=== PATIENT | male | born 1960 | race Caucasian/White ===

== ENCOUNTER 2023-01-17 08:38 | Day surgery (SDC) | payer MEDICARE, SELFPAY ==
--- NOTE | 2023-01-12 12:07 | EKG12_ITS ---
Test Reason : PRE OP Blood Pressure : / mmHG Vent. Rate : 050 BPM Atrial Rate : 050 BPM P-R Int : 142 ms QRS Dur : 088 ms QT Int : 440 ms P-R-T Axes : 063 -27 041 degrees QTc Int : 401 ms Sinus bradycardia with Premature atrial complexes Otherwise normal ECG Confirmed by ALICIA WYNNE, KASIE ([id number]), image editor REX SOTELO ([id number]) on 01/15/2023 11:11:55 AM Referred By: Nghia Donovan Confirmed By:KASIE VARGAS MD
[2023-01-12 13:32] LABS: Hematocrit 48.2 % (40-54); Hemoglobin 15.9 g/dL (13.0-16.5); Mean Corpuscular Hgb 33.2 pg (27.0-32.0); Mean Corpuscular Volume 100.6 fL (80-94); Mean Platelet Vol. 10.9 fl (6.2-12.0); Platelet Count 124 K/mm3 (150-450); RBC Distribution Width CV 12.5 % (11.6-14.6); Red Blood Count 4.79 M/mm3 (4.6-6.2); White Blood Count 7.4 K/mm3 (4.4-11.0)
[2023-01-12 13:45] LABS: International Normalized Ratio 1.1
[2023-01-12 13:59] LABS: AST(SGOT) 34 U/L (15-37); Alanine Aminotransfer ALT/SGPT 31 U/L (16-61); Albumin, Serum 4.3 g/dL (3.2-5.0); Alkaline Phosphatase 74 U/L (45-117); Bilirubin, Direct 0.19 mg/dL (0.00-0.30); Globulin 3.2 g/dL (2.2-4.2); Protein, Total 7.5 g/dL (6.4-8.2)
[2023-01-12 14:07] LABS: Anion Gap 7 (5-15); BUN 21 mg/dL (7-18); BUN/Creat Ratio 23.6 RATIO (10-20); Calcium,Total 9.4 mg/dL (8.5-10.1); Chloride 102 mmol/L (98-107); Creatinine, Serum 0.89 mg/dL (0.70-1.30); EST Glomerular Filtration Rate 92 mL/min (>60); Est Glom Filt Rate - Afr Amer 111 mL/min (>60); Glucose 84 mg/dL (74-106); Sodium Level 139 mmol/L (136-145)
[2023-01-17 09:09] VITALS: BP 124/68; PULSE 58; RESP 12; TEMP 37; O2SAT 100; BMI 26.6
[2023-01-17] MEDS: Lactated Ringers 1,000 ML 15 ML IV ×3 (09:20→12:55)
--- NOTE | 2023-01-17 10:37 | HP.PCM_ITS ---
History and Physical Date of Admission: 01/17/23 Visit Reasons:?INGUINAL PAIN Chief Complaint: inguinal pain Is patient in pain?: Yes Allergies No Known Allergies Allergy (Verified 12/13/22 11:07) Medications amlodipine 5 mg tablet 5 mg PO DAILY 12/13/22 [History Confirmed 12/13/22] atorvastatin 10 mg tablet 10 mg PO DAILY 12/13/22 [History Confirmed 12/13/22] gabapentin 300 mg capsule 300 mg PO DAILY 12/13/22 [History Confirmed 12/13/22] magnesium hydroxide 400 mg (170 mg magnesium) chewable tablet 800 mg PO BID 12/13/22 [History Confirmed 12/13/22] multivitamin 1 tab PO DAILY 12/13/22 [History Confirmed 12/13/22] ondansetron 4 mg disintegrating tablet 4 mg PO Q8H PRN 12/13/22 [History Confirmed 12/13/22] PFSH Medical History?(Updated 12/13/22 @ 11:04 by Linette Collins) Atrial fibrillation Social History?(Updated 12/13/22 @ 11:05 by Linette Collins) Smoking Status:? Never smoker alcohol intake:? never substance use type:? does not use additional social history:? takes ibuprofen HPI HPI HPI: 62-year-old gentleman is being referred by Dr. Allan Barboza for surgical consultation regarding left inguinal pain and a written copy my surgical consult recommendations will return to him.? Based upon CT scan imaging the patient has a known left inguinal fat-containing hernia.? Complicating medical factors include hepatitis C and hypertension and obstructive sleep apnea and paroxysmal atrial fibrillation with history of pulmonary emboli and thrombocytopenia.? It is of note that the patient is status post an extensive illness and hospitalization 2016 aggressively has lost weight intentionally to where he has had a 70 pound weight loss.? He has a significant overlying abdominal pannus.? He was already seen a year ago for this problem by general surgeon and is now requesting a second opinion. The patient's had a previous history of hepatitis C.? He did undergo medical treatment states that his viral load is 0.? Claims we had his illness in 2016 as when he had congestive heart failure and he was hospitalized and had to go through rehab but all of that resolved.? He does have a peripheral atrial fibrillation has a loop recorder in place now and is on chronic warfarin therapy. He notes that he will have pain shooting across the low abdomen.? He was seen in [place] a week ago with severe lower abdominal pain.? He states he had a CT scan done there and was instructed by the ER doctor that it was normal.? There is no etiology of the patient's severe abdominal pain and he was simply told to follow-up with primary care. The patient states that he feels a bulge or mass in the left groin area.? Occasionally he will feel it moving bubble and tinkle He states a year ago he had rectal bleeding and had a colonoscopy.? States there is no other acute pathology at that time. Currently no bright red blood per rectum or melena.? He always has looser stools.? No constipation. ROS General General: Yes weight change; No appetite, fatigue, colon cancer, breast cancer or weakness HEENT HEENT: No difficulty swallowing, eye injury, eye surgery, swollen glands or hoarseness Endo Endocrine: No thyroid disease, diabetes mellitus, thyroid cancer, Hair loss, heat intolerance or cold intolerance Skin Skin: No rash or changing moles Musc Musculoskeletal: Yes back problems, arthritis and rheumatoid arthritis; No gout or joint pain Cardio Cardiovascular: Yes atrial fibrillation and high blood pressure; No murmur, pacemaker, heart disease, heart attack, heart stent, palpitations, shortness of breat with exertion or chest pain Additional Details: Has had ablation. Psych Psychiatric: No depression, anxiety or hearing voices Resp Respiratory: No shortness of breath, Yes sleep apnea, No cough, No COPD, No asthma, No emphysema and No wheezing Gastro Gastrointestinal: Yes abdominal pain, Yes nausea or vomiting, Yes diarrhea, No constipation, No blood in stool, No acid reflux, Yes hemorrhoids, No ulcers, No gallbladder problem and No black,tarry stools Jean Hematologic: No blood thinners, No blood disorders, No bleeding, No anemia and No blood clots Neuro Neurologic: No system reviewed and no additional complaints, except as documented, No as per HPI, No abnormal gait, No abnormal hearing, No abnormal movements, No abnormal speech, No behavioral changes, No burning sensations, No confusion, No convulsions, No disequilibrium, No dizziness, No localized weakness, No frequent falls, No headache(s), No lack of coordination, No loss of vision, No memory loss, No numbness, No other visual disturbances, No radicular pain, No restless legs, No sensory deficit, No syncope, No tingling, No tremor(s), No weakness and No other Exam Const General: cooperative, healthy appearing, comfortable and no acute distress [facility] Head: normal to inspection Eyes General: appearance normal, both eyes and all related structures Neck Neck: normal visual inspection Chest Chest palpation & inspection: normal inspection of the chest Resp Effort & Inspection: normal respiratory effort Auscultation: clear to auscultation bilaterally Cardio Other: Irregularly irregular GI Palpation: soft and no hepatosplenomegaly Other: Significant weight loss with overhanging abdominal pannus.? Makes identifying anatomy sites difficult Other: Testicles are descended no focal mass.? Right groin appears solid.? Left groin appears to have a palpable area of tenderness that is associated with a bulge that is reducible.? This is higher on the abdomen that I suspect but that may simply be because his umbilicus is shifted inferiorly secondary to the weight loss Musc Cervical Spine: normal cervical lordosis Skin General: no rashes or lesions noted Neuro General: patient alert, patient awake and patient oriented x3 Extrem General: no calf tenderness Psych Appearance: grossly normal Assessment and Plan Assessment and Plan (1) Left inguinal hernia: ?Status:?Acute ?Plan: I do suspect that this patient has a symptomatic left inguinal hernia.? Interesting that sometimes it will be quite firm and hard as it bulges in it that he can feel movement within as if that this represents a bowel even though his previous CT scan a year ago showed fat.? It is of note that the patient because of severe lower abdominal pain was seen in the [place] emergency room just a week ago.? He had a CT scan done at that time.? I very much would like to get records and images from that scan. Tentatively I recommend to him a laparoscopic left inguinal hernia pair with mesh.? We will need to hold his Coumadin 4 days preoperatively.? I have discussed the technique, benefit, risk, alternatives.? We will need to be very careful with positioning or incisions.? We will need to carefully inspect the side of his umbilicus and palpate for the true fascial weakness is the patient's had so much weight loss that his abdominal pannus is thinned and hanging making identifying his anatomy more challenging. He has had an opportunity ask and have questions answered.? We will schedule and proceed as noted.? I have appreciate the opportunity of assisting with the surgical care. Copy: Dr. Allan Donovan M.D., F.A.C.S I have examined the patient and the H&P has been reviewed. There are no clinical changes since date of exam. Nghia Donovan M.D., F.A.C.S.
[2023-01-17] MEDS: Cefazolin 2 GM in 0.9% Normal Saline 100 ML IV (10:58)
--- NOTE | 2023-01-17 11:00 | DCINST_ITS ---
Discharge Instructions Procedure General Surgery Diet Discharge Diet: Light diet - advance as tolerated (if you have questions about your diet instructions, please talk to you doctor.) Activity Discharge Activity: May Not Drive (for 3-5 days or while taking narcotic pain medicine.) May shower in (days): 1 Lifting Restrictions: 10 pounds Dressing / Incision Call your doctor if your incision/area has: Continuous Slow Oozing, Sudden Increased Bleeding, Increased Pain/ Swelling, Increased Redness and Foul Smelling Discharge Call your doctor if you observe: Fever of 101 or Higher Suture Line Care: Avoid Pulling/Pushing and Avoid Pinching/Bending Additional Dressing/Incision Instructions:: Change or remove dressing in 4 days. Leave steri-strips in place for 1 week. Follow Up Care Please Follow Up With: Nghia Donovan MD When: Call [phone] to make an appointment to be seen in about 10 days. Test Results: Test results from this visit will be discussed in further detail at your follow- up appointment, if applicable. Discharge Plan Admission Attending Provider: Nghia Donovan Primary Care Provider: Allan Barboaz Discharge Orders/Prescriptions Prescriptions: No Action gabapentin 300 mg capsule 300 mg PO DAILY amlodipine 5 mg tablet 5 mg PO DAILY atorvastatin 10 mg tablet 10 mg PO DAILY magnesium hydroxide 400 mg (170 mg magnesium) tablet,chewable 800 mg PO BID multivitamin Tablet 1 tab PO DAILY ondansetron 4 mg tablet,disintegrating 4 mg PO Q8H PRN (Reason: Nausea) Referrals / Follow Up: Allan Barboza MD [Primary Care Provider] - Disposition Disposition (needs filled in before D/C Order can be placed): Home, Self Care
[2023-01-17] MEDS: Bupivacaine Mpf 0.5% 30 ML VIAL (11:30)
--- NOTE | 2023-01-17 12:14 | PCM.OPRPT ---
Report of Operation Date of Procedure: 01/17/23 Pre-Operative Diagnosis: Left inguinal hernia Post-Operative Diagnosis: Indirect left inguinal hernia Surgery/Procedure Performed:: Laparoscopic left inguinal herniorrhaphy with extra-large Bard 3D max mesh Lot number [id number], reference [id number], expiry date 12/24/2026 Secure strap Lot number [id number], expiry date November 2023 Description of Surgical Findings:: Timeout and informed consent was obtained. 62-year-old gentleman was taken to the operating placed on the table underwent general endotracheal intubation anesthesia. The abdomen sterilely prepped and draped. 0.5% Marcaine was used as a local anesthetic. Skin sites were pre-anesthetized. Under ultrasound guidance a left ilioinguinal nerve block was performed.. Throughout the procedure a total of 30 cc was used. A vertical infraumbilical incision was created holding sutures of 0 Vicryl placed varies needle inserted but I could not get insufflation so then I did a direct cutdown technique layer by layer and was able to visualize opening of the peritoneum placed a 12 mm trocar a 10 mm laparoscope inserted the abdomen was insufflated with CO2 to a pressure of 10 mmHg pressure there was no evidence of any trocar or Veress needle injury. 5 mm trocars and placed in the right left lower quadrant and direct visualization. No evidence of inguinal hernia on the right. Obvious indirect defect on the left. The peritoneum was incised medial to the internal ring and carried laterally then the peritoneum was dissected free generously completely inverting a sizable hernia sac blunt dissection was needed where hemostasis was required Hem-o-betty clips were used the indirect direct and femoral area nicely dissected free. A extra-large Bard 3D max left-sided mesh was placed and very nicely fit into the defect area covering the defect. I secured laterally superiorly and medially with secure strap. Excellent positioning was achieved. The peritoneum was approximated to itself using secure strap and Hem-o-betty clips. Complete obliteration of the mesh was achieved. Trocars were removed. The fascia then plicas approximated interrupted 0 Vicryl [id number] suture. Skin edges approximated with 4 Monocryl subdermal stitches. Steri-Strips Telfa OpSite dressings applied. Sponge and instrument and needle counts were reported to the surgeon to be correct. Specimens none. Drains none. Blood loss minimal. The patient was taken to the recovery area in satisfactory condition without apparent complication Nghia Donovan M.D., F.A.C.S. Surgeon: Nghia Donovan Type of Anesthesia: General and Local Anesthesiologist: Catalino Whittaker
[2023-01-17 12:30] VITALS: BP 124/68; BP 156/83; PULSE 75; RESP 16; TEMP 36.9; O2SAT 100
[2023-01-17 12:45] VITALS: BP 124/68; BP 131/81; PULSE 61; RESP 16; O2SAT 100
[2023-01-17 13:00] VITALS: BP 124/68; BP 138/79; PULSE 59; RESP 16; TEMP 36.8; O2SAT 98
[2023-01-17] MEDS: HYDROcodone Bitartrate/Apap 5/325 Tablet PO (13:38)
[2023-01-17 13:53] VITALS: BP 124/68; BP 148/81; PULSE 65; RESP 18; TEMP 36.7; O2SAT 99
== END 2023-01-17 13:57 | disposition home or self-care (01) ==
LOC: SDC 08:39 → AC 08:40
PROVIDERS: Anesthesiology; PCP Family Medicine; Referring Provider Surgery; Visit Provider Surgery
PROC: (CPT 49650; principal; 2023-01-17 10:40)
DX: K40.90 Unilateral inguinal hernia, without obstruction or gangrene, not specified as recurrent (principal); I48.0 Paroxysmal atrial fibrillation; Z79.01 Long term (current) use of anticoagulants; B19.20 Unspecified viral hepatitis C without hepatic coma; G47.33 Obstructive sleep apnea (adult) (pediatric); I10 Essential (primary) hypertension
CPT/HCPCS: 49650; 00840; 36415; 80048; 80076; 85027; 85610; 85730; 93005; J7120; C1781; J2405